=== PATIENT | female | born 1940 | race Caucasian/White ===

== ENCOUNTER 2016-07-23 14:14 | Emergency (ER) | payer MEDICARE, BC ==
[~2016-07-23] VITALS: Ht 157.5 cm; Wt 60.0 kg
[~2016-07-23 14:14] MED LIST: BISA5TAB PO; LORA10TA7 PO
[2016-07-23 14:16] VITALS: BP 125/103; PULSE 85; RESP 14; TEMP 99.2; O2SAT 99
[2016-07-24] VITALS: BP 134/85; PULSE 88; RESP 14; O2SAT 99
--- NOTE | 2016-07-24 00:55 | PD ---
HPI Chief Complaint: Cold / Flu Symptoms Time Seen by Provider: 00:23 Travel History International Travel<30 days: No Contact w/Intl Traveler<30days: No Traveled to known affect area: No History of Present Illness HPI This is a 76 year old female who presents to the emergency department reporting back pain. Pt. reports that one month ago she had a bad cold, associated with fevers, chills, body aches, and cough. She feels better but ever since then she has been having back pain. Pt. has been unable to bend over to pick anything up off of the floor, and its painful for her to lay on her right side. She is unable to sleep, which brought her into the emergency department. The patient reports the pain has moved. At first she felt it in her left upper shoulder, and now it has migrated to her right side of her neck she has some pain in her lower back and hip. PFSH Past Medical History Heart Rhythm Problems: No Cardiac Catheterization: No Cardiovascular Problems: No High Cholesterol: No Congestive Heart Failure: No Diabetes: No Diminished Hearing: No Medical other: Yes (chronic pain) Immunizations Current: Yes Menopausal: Yes Past Surgical History Appendectomy: Yes Coronary Artery Bypass Graft: No Gynecologic Surgery: Yes (OVARIAN TUMOR REMOVED-BENIGN) Hysterectomy: Yes Tonsillectomy: Yes Social History Alcohol Use: Yes (OCCASIONALLY) Tobacco Use: No Substance Use: No Allergies-Medications (Allergen,Severity, Reaction): Coded Allergies: Penicillin (Verified Allergy, Unknown, cannot remember, 01/16/16) Reported Meds & Prescriptions Reported Meds & Active Scripts Active No Active Prescriptions or Reported Medications Review of Systems Except as stated in HPI: all other systems reviewed are Neg Physical Exam Narrative GENERAL:Well appearing, no acute distress SKIN: Warm and dry. HEAD: Atraumatic. Normocephalic. EYES: Pupils equal and round. No injection or drainage. ENT: Moist mucous membranes NECK: Trachea midline. CARDIOVASCULAR: Regular rate and rhythm. No murmur appreciated. RESPIRATORY: Clear to auscultation. Breath sounds equal bilaterally. GASTROINTESTINAL: Abdomen soft, non-tender, nondistended. MUSCULOSKELETAL: No obvious deformities. NEUROLOGICAL: Awake and alert. No obvious cranial nerve deficits. Moving all extremities. PSYCHIATRIC: Appropriate mood and affect; insight and judgment normal. Data Data Last Documented VS Vital Signs Date Time Temp Pulse Resp B/P Pulse Ox O2 Delivery O2 Flow Rate FiO2 2/8/17 23:48 98 Room Air 07/23/16 14:16 99.2 85 14 125/103 Orders Complete Blood Count With Diff (07/24/16 01:09) Comprehensive Metabolic Panel (07/24/16 01:09) Creatine Kinase (Cpk) (07/24/16 01:09) ^ Insert Iv (07/24/16 01:09) Westergren Sedimentation Rate (07/24/16 01:12) Hip, Uni(Ap&Lat) W Ap Pelvis (07/24/16 ) Ct Cerv Spine W/O Contrast (07/24/16 ) Morphine Inj (Morphine Inj) (07/24/16 01:30) C-Reactive Protein (Crp) (07/24/16 02:00) Labs Laboratory Tests Test 07/24/16 02:00 White Blood Count 8.7 TH/MM3 Red Blood Count 4.12 MIL/MM3 Hemoglobin 13.6 GM/DL Hematocrit 40.0 % Mean Corpuscular Volume 97.1 FL Mean Corpuscular Hemoglobin 33.0 PG Mean Corpuscular Hemoglobin 34.0 % Concent Red Cell Distribution Width 12.6 % Platelet Count 277 TH/MM3 Mean Platelet Volume 7.7 FL Neutrophils (%) (Auto) 73.5 % Lymphocytes (%) (Auto) 15.4 % Monocytes (%) (Auto) 10.7 % Eosinophils (%) (Auto) 0.2 % Basophils (%) (Auto) 0.2 % Neutrophils # (Auto) 6.4 TH/MM3 Lymphocytes # (Auto) 1.3 TH/MM3 Monocytes # (Auto) 0.9 TH/MM3 Eosinophils # (Auto) 0.0 TH/MM3 Basophils # (Auto) 0.0 TH/MM3 CBC Comment DIFF FINAL Differential Comment Sodium Level 137 MEQ/L Potassium Level 3.8 MEQ/L Chloride Level 101 MEQ/L Carbon Dioxide Level 26.3 MEQ/L Anion Gap 10 MEQ/L Blood Urea Nitrogen 17 MG/DL Creatinine 0.43 MG/DL Estimat Glomerular Filtration 144 ML/MIN Rate Random Glucose 98 MG/DL Calcium Level 9.2 MG/DL Total Bilirubin 1.2 MG/DL Aspartate Amino Transf 21 U/L (AST/SGOT) Alanine Aminotransferase 25 U/L (ALT/SGPT) Alkaline Phosphatase 79 U/L Total Creatine Kinase 36 U/L C-Reactive Protein 11.50 MG/DL Total Protein 7.9 GM/DL Albumin 3.3 GM/DL MDM Medical Decision Making Medical Screen Exam Complete: Yes Emergency Medical Condition: Yes Interpretation(s) Temperature is 99.2 No leukocytosis CRP is 11.5 Last 24 hours Impressions Hip and Pelvis X-Ray 07/24/16 0000 Signed Impressions: Service Date/Time: July 01:30 - CONCLUSION: No acute disease. Carson Ruby MD Cervical Spine CT 07/24/16 0000 Signed Impressions: Service Date/Time: July 01:38 - CONCLUSION: Multilevel degenerative changes are seen without evidence for acute fracture. Carson Ruby MD Differential Diagnosis Arthritis, myositis, rhabdomyolysis, polymyalgia rheumatica Narrative Course This is a 76-year-old female who presents to the emergency department with pain all over her body mostly in the muscles is been present ever since she was sick with a viral syndrome. She doesn't have one joint which hurts more than the others and the pain is not limited to joints but seems more in her muscles. She was placed in a monitor and an IV was established. Labs are obtained which are unremarkable except for elevated inflammatory markers. She is normal white blood cell count. I suspect she may have polymyalgia rheumatica. I don't think this is a diagnosis we can make in the ER but I think it's reasonable to start her on a low-dose prednisone. We referred her to primary care doctor and operations manager/coordinator. Diagnosis Primary Impression: Pain Patient Instructions: General Instructions Additional Instructions: If you develop severe chest pain, shortness of breath, sweating, lightheadedness , dizziness or difficulty breathing return to the emergency department immediately. Follow-up with a primary care physician and operations manager/coordinator. Med/Other Pt SpecificInfo: Prescription(s) given Scripts Tramadol 50 Mg Tab50 Mg PO Q6H PRN (PAIN) #12 TAB Prov:Xin Davison MD 07/24/16 Prednisone 5 Mg Tab15 Mg PO DAILY 10 Days Ref 0 Prov:Xin Davison MD 07/24/16 Disposition: 01 DISCHARGE HOME Condition: Stable Xin Davison MD Jul 24, 2016 00:55
[2016-07-24] MEDS ORDERED: MORPHINE SULFATE 4 MG/ML INJ IV PUSH ONE (01:30)
--- NOTE | 2016-07-24 01:59 | RADRPT ---
EXAM DATE/TIME: 07/24/2016 01:30 [facility] COMPARISON: No previous studies available for comparison. INDICATIONS : Right hip pain for 1 week with no known injury MEDICAL HISTORY : None. SURGICAL HISTORY : None. ENCOUNTER: Initial ACUITY: 1 week PAIN SCORE: 6/10 LOCATION: Right entire hip FINDINGS: Examination of the right hip was performed with AP Pelvis. The primary and secondary trabecular yvonne emmett of the femoral neck is intact. The hip joint is of normal width without significant sclerosis or bony hypertrophy. The acetabulum is grossly intact. CONCLUSION: No acute disease. Carson Ruby MD on July 24, 2016 at 1:57 Board Certified Radiologist. This report was verified electronically.
--- NOTE | 2016-07-24 02:02 | RADRPT ---
EXAM DATE/TIME: 07/24/2016 01:38 [facility] COMPARISON: No previous studies available for comparison. INDICATIONS : Right sided neck pain. RADIATION DOSE: 21.92 CTDIvol (mGy) MEDICAL HISTORY : None SURGICAL HISTORY : Appendectomy. Hysterectomy.Tonsillectomy. ENCOUNTER: Initial ACUITY: 1 day PAIN SCALE: 7/10 LOCATION: neck TECHNIQUE: Volumetric scanning of the cervical spine was performed. Multiplanar reconstructions in the sagittal, coronal and oblique axial planes were performed. Using automated exposure control and adjustment o f the mA and/or kV according to patient size, radiation dose was kept as low as reasonably achievable to obtain optimal diagnostic quality images. FINDINGS: No prevertebral soft tissue swelling or compression deformity. Multilevel facet hypertrophic changes are seen greatest at C4-5 on the right. There is severe disc space narrowing at C3-4, C5-6 and C6-7 w ith anterior osteophytosis. Grade 1 retrolisthesis of C3 on C4 and C5 on C6 with grade 1 anterolisthe sis of C4 on C5 and C7 on T1. Multilevel uncovertebral hypertrophy. There is mild to moderate right f oraminal narrowing at C3-4. Moderate left foraminal narrowing at C5-6. Mild canal narrowing at C5-6 s econdary to a diffuse disc osteophyte complex. Mild canal narrowing at C3-4 secondary to a diffuse di sc osteophyte complex. CONCLUSION: Multilevel degenerative changes are seen without evidence for acute fracture. Crason Ruby MD on July 24, 2016 at 1:58 Board Certified Radiologist. This report was verified electronically.
[2016-07-24 02:46] LABS: AUTOMATED NEUTROPHIL # 6.4 TH/MM3 (1.8-7.7); BASOPHIL % 0.2 % (0.0-2.0); EOSINOPHIL % 0.2 % (0.0-4.0); HEMO FLAGS DIFF FINAL; LYMPH % 15.4 % (9.0-44.0); LYMPHOCYTE # 1.3 TH/MM3 (1.0-4.8); MEAN CELL VOLUME 97.1 FL (80.0-100.0); MONO % 10.7 % (0.0-8.0); NEUT % 73.5 % (16.0-70.0); PLATELET COUNT 277 TH/MM3 (150-450); RED BLOOD COUNT 4.12 MIL/MM3 (4.00-5.30); RED CELL DISTRIBUTION WIDTH 12.6 % (11.6-17.2); WHITE BLOOD COUNT 8.7 TH/MM3 (4.0-11.0)
[2016-07-24 02:54] LABS: ALT (GPT) 25 U/L (10-53); ANION GAP 10 MEQ/L (5-15); AST (GOT) 21 U/L (15-37); BICARBONATE 26.3 MEQ/L (21.0-32.0); BLOOD UREA NITROGEN 17 MG/DL (7-18); CHLORIDE 101 MEQ/L (98-107); GLOMERULAR FILTRATION RATE 144 ML/MIN (>89); POTASSIUM 3.8 MEQ/L (3.5-5.1); SODIUM (NA) 137 MEQ/L (136-145)
[2016-07-24 02:56] LABS: ALKALINE PHOSPHATASE 79 U/L (45-117); TOTAL BILIRUBIN ADULT 1.2 MG/DL (0.2-1.0)
[2016-07-24 03:00] LABS: CREATINE KINASE 36 U/L (26-192)
[2016-07-24] MEDS ORDERED: TRAM50TA PO (03:25)
[2016-07-24] MEDS ORDERED: PRED5TAB PO (03:25)
[2016-07-24 03:56] VITALS: BP 129/60; PULSE 100; RESP 18; O2SAT 99
[2016-10-07] MEDS ORDERED: DIPH1TAB36 PO (11:05)
[2016-10-07] MEDS ORDERED: LORA10TA PO (11:05)
[2016-10-07] MEDS ORDERED: [UNRECOGNIZED DRUG - OTHER] (11:05)
[2016-10-07] MEDS ORDERED: MISC1CAP4 PO (11:05)
[2016-10-22] MEDS ORDERED: COLOCAP (08:54)
[2016-10-22] MEDS ORDERED: PNEU13P IM (09:09)
== END 2016-07-24 04:02 | disposition home or self-care (01) ==
LOC: NEPC 14:14
DX: R52 Pain, unspecified (principal); M54.2 Cervicalgia; M54.5 Low back pain; M25.559 Pain in unspecified hip
CPT/HCPCS: 72125; 73502; 80053; 82550; 85025; 85652; 86140; 96374; 99284; J2270

== ENCOUNTER 2017-06-16 16:25 | Observation (INO) | payer MEDICARE, BC ==
[~2017-06-16] VITALS: Ht 157.5 cm; Wt 62.3 kg
[~2017-06-16 16:25] MED LIST changes: -BISA5TAB PO; +COLOCAP; +DIPH1TAB36 PO; +LORA10TA PO; -LORA10TA7 PO; +[UNRECOGNIZED DRUG - OTHER]
[2017-06-16 16:28] VITALS: BP 137/87; PULSE 76; RESP 14; TEMP 97.8; O2SAT 96
[2017-06-16] MEDS ORDERED: SODIUM CHLORIDE 0.9% FLUSH 10 ML FLUSH IVF PRN (17:15)
[2017-06-16 17:26] VITALS: O2SAT 99
[2017-06-16 17:54] LABS: AUTOMATED NEUTROPHIL # 3.7 TH/MM3 (1.8-7.7); BASOPHIL % 0.3 % (0.0-2.0); EOSINOPHIL # 0.1 TH/MM3 (0-0.4); EOSINOPHIL % 1.2 % (0.0-4.0); HEMATOCRIT 41.1 % (35.0-46.0); HEMOGLOBIN 14.4 GM/DL (11.6-15.3); LYMPH % 30.1 % (9.0-44.0); LYMPHOCYTE # 1.8 TH/MM3 (1.0-4.8); MEAN CELL VOLUME 100.6 FL (80.0-100.0); MEAN CORPUSCULAR HEMOGLOBIN 35.1 PG (27.0-34.0); MEAN CORPUSCULAR HGB CONC 34.9 % (32.0-36.0); MEAN PLATELET VOLUME 7.9 FL (7.0-11.0); MONO % 6.3 % (0.0-8.0); MONOCYTE # 0.4 TH/MM3 (0-0.9); NEUT % 62.1 % (16.0-70.0); PLATELET COUNT 271 TH/MM3 (150-450); RED BLOOD COUNT 4.09 MIL/MM3 (4.00-5.30); RED CELL DISTRIBUTION WIDTH 13.9 % (11.6-17.2)
--- NOTE | 2017-06-16 17:55 | RADRPT ---
EXAM DATE/TIME: 06/16/2017 17:33 [facility] COMPARISON: No previous studies available for comparison. INDICATIONS : Chest pain. MEDICAL HISTORY : None. SURGICAL HISTORY : None. ENCOUNTER: Initial ACUITY: 1 day PAIN SCORE: 7/10 LOCATION: Bilateral chest FINDINGS: The lungs are clear without infiltrate, nodule, or mass. There is no appreciable pleural effusion fo r technique. Heart and mediastinum are unremarkable. CONCLUSION: No acute cardiopulmonary disease. Bola Brandon MD on June 16, 2017 at 17:53 Board Certified Radiologist. This report was verified electronically.
[2017-06-16 18:26] LABS: ALBUMIN 4.1 GM/DL (3.4-5.0); ALT (GPT) 40 U/L (10-53); AST (GOT) 28 U/L (15-37); BICARBONATE 32.2 MEQ/L (21.0-32.0); BLOOD UREA NITROGEN 20 MG/DL (7-18); CALCIUM 8.6 MG/DL (8.5-10.1); CHLORIDE 106 MEQ/L (98-107); CREATININE 0.48 MG/DL (0.50-1.00); GLOMERULAR FILTRATION RATE 126 ML/MIN (>89); GLUCOSE,RANDOM 57 MG/DL (74-106); MAGNESIUM 2.6 MG/DL (1.5-2.5); SODIUM (NA) 142 MEQ/L (136-145)
[2017-06-16 18:32] LABS: ALKALINE PHOSPHATASE 54 U/L (45-117); TOTAL BILIRUBIN ADULT 0.8 MG/DL (0.2-1.0); TOTAL PROTEIN 7.9 GM/DL (6.4-8.2); TROPONIN I LESS THAN 0.02 NG/ML (0.02-0.05)
--- NOTE | 2017-06-16 19:13 | PD ---
HPI Chief Complaint: Chest Pain Time Seen by Provider: 17:12 Travel History International Travel<30 days: No Contact w/Intl Traveler<30days: No Traveled to known affect area: No History of Present Illness HPI 77 year old female presents to the emergency department for evaluation substernal chest pressure x 4 days. The pain does not radiate anywhere and is constant in nature. The pain is mild in nature. It is concerning her because she does not have any major medical history. Patient states today when she was at the bank she feel like she was going to pass out. She did not pass out and the feel was transient. The patient denies any shortness of breath or diaphoresis during this event. Patient states she has felt nauseous today, but has not vomited, experienced abdominal pain or diarrhea. Patient denies any recent fevers, chills, malaise. PFSH Past Medical History Heart Rhythm Problems: No Cardiac Catheterization: No Cardiovascular Problems: No High Cholesterol: No Congestive Heart Failure: No Diabetes: No Diminished Hearing: No Immunizations Current: Yes ?: Not Menopausal: Yes Past Surgical History Appendectomy: Yes Coronary Artery Bypass Graft: No Gynecologic Surgery: Yes (OVARIAN TUMOR REMOVED-BENIGN) Hysterectomy: Yes Tonsillectomy: Yes Social History Alcohol Use: Yes (OCCASIONALLY) Tobacco Use: No Substance Use: No Allergies-Medications (Allergen,Severity, Reaction): Coded Allergies: penicillin G (Unverified Allergy, Unknown, cannot remember, 06/16/17) Reported Meds & Prescriptions Reported Meds & Active Scripts Active No Active Prescriptions or Reported Medications Review of Systems Except as stated in HPI: all other systems reviewed are Neg Physical Exam Narrative GENERAL: Well-nourished, well-developed 77-year-old female in no acute distress. Nontoxic appearing. SKIN: Focused skin assessment warm/dry. HEAD: Atraumatic. Normocephalic. EYES: Pupils equal and round. No scleral icterus. No injection or drainage. ENT: No nasal bleeding or discharge. Mucous membranes pink and moist. NECK: Trachea midline. No JVD. CARDIOVASCULAR: Regular rate and rhythm. No murmur appreciated. RESPIRATORY: No accessory muscle use. Clear to auscultation. Breath sounds equal bilaterally. GASTROINTESTINAL: Abdomen soft, non-tender, nondistended. Negative Greer's sign. Hepatic and splenic margins not palpable. MUSCULOSKELETAL: No obvious deformities. No clubbing. No cyanosis. No edema. NEUROLOGICAL: Awake and alert. No obvious cranial nerve deficits. Motor grossly within normal limits. Normal speech. PSYCHIATRIC: Appropriate mood and affect; insight and judgment normal. Data Data Last Documented VS Vital Signs Date Time Temp Pulse Resp B/P (MAP) Pulse Ox O2 Delivery O2 Flow Rate FiO2 06/16/17 17:26 99 Room Air 06/16/17 17:26 06/16/17 16:28 97.8 76 14 Orders Orders Electrocardiogram (06/16/17 ) Ckmb (Isoenzyme) Profile (06/16/17 17:13) Complete Blood Count With Diff (06/16/17 17:13) Comprehensive Metabolic Panel (06/16/17 17:13) Magnesium (Mg) (06/16/17 17:13) Prothrombin Time / Inr (Pt) (06/16/17 17:13) Act Partial Throm Time (Ptt) (06/16/17 17:13) Troponin I (06/16/17 17:13) Chest, Single Ap (06/16/17 17:13) Ecg Monitoring (06/16/17 17:13) Bilateral Bp Monitoring (06/16/17 17:13) Iv Access Insert/Monitor (06/16/17 17:13) Oximetry (06/16/17 17:13) Oxygen Administration (06/16/17 17:13) Sodium Chloride 0.9% Flush (Ns Flush) (06/16/17 17:15) Ct Brain W/O Iv Contrast(Rout) (06/16/17 18:51) Admit Order (Ed Use Only) (06/16/17 19:51) Labs Laboratory Tests Test 06/16/17 17:25 White Blood Count 6.0 TH/MM3 Red Blood Count 4.09 MIL/MM3 Hemoglobin 14.4 GM/DL Hematocrit 41.1 % Mean Corpuscular Volume 100.6 FL Mean Corpuscular Hemoglobin 35.1 PG Mean Corpuscular Hemoglobin Concent 34.9 % Red Cell Distribution Width 13.9 % Platelet Count 271 TH/MM3 Mean Platelet Volume 7.9 FL Neutrophils (%) (Auto) 62.1 % Lymphocytes (%) (Auto) 30.1 % Monocytes (%) (Auto) 6.3 % Eosinophils (%) (Auto) 1.2 % Basophils (%) (Auto) 0.3 % Neutrophils # (Auto) 3.7 TH/MM3 Lymphocytes # (Auto) 1.8 TH/MM3 Monocytes # (Auto) 0.4 TH/MM3 Eosinophils # (Auto) 0.1 TH/MM3 Basophils # (Auto) 0.0 TH/MM3 CBC Comment DIFF FINAL Differential Comment Prothrombin Time 10.0 SEC Prothromb Time International Ratio 1.0 RATIO Activated Partial Thromboplast Time 23.9 SEC Blood Urea Nitrogen 20 MG/DL Creatinine 0.48 MG/DL Random Glucose 57 MG/DL Total Protein 7.9 GM/DL Albumin 4.1 GM/DL Calcium Level 8.6 MG/DL Magnesium Level 2.6 MG/DL Alkaline Phosphatase 54 U/L Aspartate Amino Transf (AST/SGOT) 28 U/L Alanine Aminotransferase (ALT/SGPT) 40 U/L Total Bilirubin 0.8 MG/DL Sodium Level 142 MEQ/L Potassium Level 3.5 MEQ/L Chloride Level 106 MEQ/L Carbon Dioxide Level 32.2 MEQ/L Anion Gap 4 MEQ/L Estimat Glomerular Filtration Rate 126 ML/MIN Total Creatine Kinase 70 U/L Troponin I LESS THAN 0.02 NG/ML [facility] Medical Decision Making Medical Screen Exam Complete: Yes Emergency Medical Condition: Yes Differential Diagnosis Differential diagnoses include but not limited to electrolyte abnormality, coronary event, pneumonia, CA Narrative Course Patient was on monitor, IV obtained, blood work sent to lab. CBC, CMP, magnesium, PT/INR, troponin, CK-MB ordered and pending. Chest x-ray ordered and pending. EKG ordered and interpreted. CT of the brain ordered to evaluate symptoms of near syncope. Chest x-ray shows no acute cardiopulmonary disease CT of the brain shows no acute intracranial disease EKG shows sinus rhythm with heart rate 70 CBC shows no acute abnormality CMP shows milk hypoglycemia at 57. [place] juice given. Trop is less than 0.02 Mag is 2.6 PT/INR shows APTT 23.9, otherwise no acute abnormality. Based on patient's symptoms, clinical presentation, lab results, radiological results, vital sign review and physical exam it is prudent to keep the patient in the chest pain for further evaluation. Patient will be admitted for obs, serial EKG and cardiac enzymes and a stress test in the morning now. Diagnosis Primary Impression: Chest pain Qualified Codes: R07.9 - Chest pain, unspecified Admitting Information Admitting Physician Requests: Observation Scripts No Active Prescriptions or Reported Meds eMlinda Henley Jun 16, 2017 19:13
--- NOTE | 2017-06-16 19:32 | RADRPT ---
EXAM DATE/TIME: 06/16/2017 19:11 [facility] COMPARISON: CT BRAIN W/O CONTRAST, June 28, 2014, 6:39. INDICATIONS : Dizziness. RADIATION DOSE: 56.35 CTDIvol (mGy) MEDICAL HISTORY : None SURGICAL HISTORY : None. ENCOUNTER: Initial ACUITY: 1 day PAIN SCALE: 0/10 LOCATION: cranial TECHNIQUE: Multiple contiguous axial images were obtained of the head. Using automated exposure control and adj ustment of the mA and/or kV according to patient size, radiation dose was kept as low as reasonably a chievable to obtain optimal diagnostic quality images. DICOM format image data is available electro nically for review and comparison. FINDINGS: CEREBRUM: The ventricles are normal for age. No evidence of midline shift, mass lesion, hemorrhage or acute in farction. No extra-axial fluid collections are seen. POSTERIOR FOSSA: The cerebellum and brainstem are intact. The 4th ventricle is midline. The cerebellopontine angle i s unremarkable. EXTRACRANIAL: The visualized portion of the orbits is intact. SKULL: The calvaria is intact. No evidence of skull fracture. CONCLUSION: No acute intracranial disease. Rusty Luong MD on June 16, 2017 at 19:29 Board Certified Radiologist. This report was verified electronically.
[2017-06-16] MEDS ORDERED: SODIUM CHLORIDE 0.9% FLUSH 10 ML FLUSH IV FLUSH PRN (20:45)
[2017-06-16 21:14] VITALS: BP 136/60; PULSE 96; RESP 18; TEMP 98.3; O2SAT 99
[2017-06-16 21:54] VITALS: PULSE 93
[2017-06-16 21:59] LABS: TROPONIN I LESS THAN 0.02 NG/ML (0.02-0.05)
[2017-06-16 22:00] VITALS: O2SAT 98
[2017-06-16 23:16] VITALS: BP 129/61; PULSE 77; RESP 18; O2SAT 98
[2017-06-17 00:28] VITALS: PULSE 77
[2017-06-17] MEDS: SODIUM CHLORIDE 0.9% FLUSH 10 ML FLUSH IV FLUSH SCH ×2 (00:49→09:03)
[2017-06-17 01:01] LABS: TROPONIN I LESS THAN 0.02 NG/ML (0.02-0.05)
[2017-06-17 03:21] VITALS: BP 111/61; PULSE 71; RESP 18; TEMP 98.2; O2SAT 96
[2017-06-17 04:05] VITALS: PULSE 63
--- NOTE | 2017-06-17 08:36 | HHI.HP ---
[facility] Primary Care Physician Esther Mancilla MD Chief Complaint Chest pain History of Present Illness This is a 77-year-old female that presents to ED via private vehicle with complaint of intermittent chest discomforts for the past 2-1/2 weeks. States it began before [place]. She states "I just wanted to make it through [place]." States it occurs almost every night. When asked how long it last patient states "I don't know." Cannot recall anything that brings on the discomfort. Points to the substernal region to indicate where the discomfort is located. No shortness breath or diaphoresis. Had no prior nausea however she states that she was going to [place] that she had an episode of nonbloody nonbilious emesis. States that she was feeling dizzy while driving yesterday afternoon and that prompted her to come to the ED. Denies headache. Denies numbness tingling or weakness in extremities. States she's had a stress test in the past and upon reviewing records she had a nonischemic Jerod protocol ETT in 2013. Denies hypertension, hyperlipidemia, diabetes, CAD. Denies family history of CAD. Lifetime nonsmoker. Review of Systems General: Patient denies fevers, chills recent, and recent travel HEENT: Patient denies headache, sore throat, difficulty swallowing. Cardiovascular: Has the chest discomfort as mentioned above. Denies sensation of heart beating rapidly or irregularly. No syncope. Denies diaphoresis. Respiratory: Denies shortness of breath or inspirational chest discomfort. Denies coughing wheezing or hemoptysis. GI: One episode of emesis while in [place]. Patient denies diarrhea, abdominal pain , bloody stools. Musculoskeletal: Patient denies joint pain or edema. Denies calf pain or edema. Neurovascular: Patient denies numbness, tingling, weakness in extremities. Denies headache. Endocrine: Denies polyuria and polydipsia. Hematologic: Denies easy bruising. Skin: Denies rash or itching. Past Family Social History Allergies: Coded Allergies: penicillin G (Unverified Allergy, Unknown, cannot remember, 06/16/17) Past Medical History She's had a few episodes of vertigo. Seasonal allergies. Denies hypertension, hyperlipidemia, diabetes, and CAD. Lifetime nonsmoker. Past Surgical History Benign ovarian tumor removed. Hysterectomy appendectomy, and tonsillectomy. Reported Medications Reported Meds & Active Scripts Active No Active Prescriptions or Reported Medications Active Ordered Medications Current Medications Medications (Trade) Dose Ordered Sig/Chris Route Start Time Stop Time Status Last Admin (NS Flush) 2 ml UNSCH PRN IVF 06/16/17 17:15 (NS Flush) 2 ml UNSCH PRN IV FLUSH 06/16/17 20:45 (NS Flush) 2 ml BID IV FLUSH 06/16/17 21:00 06/17/17 00:49 Family History Denies family history of CAD. Social History Lifetime nonsmoker. Denies illicit drugs. Has occasional alcohol. Physical Exam Vital Signs Vital Signs Date Time Temp Pulse Resp B/P (MAP) Pulse Ox O2 Delivery O2 Flow Rate FiO2 06/17/17 07:42 21 06/17/17 04:05 63 06/17/17 03:21 98.2 71 18 111/61 (78) 96 06/17/17 00:28 77 06/16/17 23:16 77 18 129/61 (83) 98 06/16/17 22:00 98 06/16/17 21:54 93 06/16/17 21:14 98.3 96 18 136/60 (85) 99 06/16/17 20:58 06/16/17 17:26 99 Room Air 06/16/17 17:26 99 Room Air 06/16/17 16:28 97.8 76 14 137/87 (104) 96 Physical Exam GENERAL: This is a well-nourished, well-developed patient, in no apparent distress. Patient speaks in clear complete sentences. Patient is pleasant. HEENT: Head is atraumatic and normocephalic. Neck is supple without lymphadenopathy and trachea is midline. No JVD or carotid bruits. CARDIOVASCULAR: Regular rate and rhythm without murmurs, gallops, or rubs. RESPIRATORY: Clear to auscultation. Breath sounds equal bilaterally. No wheezes , rales, or rhonchi. Chest wall is nontender. No use of accessory muscles. GASTROINTESTINAL: Abdomen is nontender, nondistended. Abdomen soft. No obvious pulsatile mass or bruit. No CVA tenderness. Strong femoral pulses bilaterally. Normal bowel sounds in all quadrants. MUSCULOSKELETAL: Patient is moving upper and lower extremities freely. No calf tenderness or edema, no Homans sign. Strong pulses in upper and lower extremities. NEUROLOGICAL: Patient is alert and oriented. Cranial nerves 2-12 are grossly intact. No focal deficits and speech is clear. SKIN: No rash and turgor is normal. Laboratory Laboratory Tests Test 06/16/17 17:25 06/16/17 21:24 06/16/17 23:50 White Blood Count 6.0 Red Blood Count 4.09 Hemoglobin 14.4 Hematocrit 41.1 Mean Corpuscular Volume 100.6 Mean Corpuscular Hemoglobin 35.1 Mean Corpuscular Hemoglobin Concent 34.9 Red Cell Distribution Width 13.9 Platelet Count 271 Mean Platelet Volume 7.9 Neutrophils (%) (Auto) 62.1 Lymphocytes (%) (Auto) 30.1 Monocytes (%) (Auto) 6.3 Eosinophils (%) (Auto) 1.2 Basophils (%) (Auto) 0.3 Neutrophils # (Auto) 3.7 Lymphocytes # (Auto) 1.8 Monocytes # (Auto) 0.4 Eosinophils # (Auto) 0.1 Basophils # (Auto) 0.0 CBC Comment DIFF FINAL Differential Comment Prothrombin Time 10.0 Prothromb Time International Ratio 1.0 Activated Partial Thromboplast Time 23.9 Blood Urea Nitrogen 20 Creatinine 0.48 Random Glucose 57 Total Protein 7.9 Albumin 4.1 Calcium Level 8.6 Magnesium Level 2.6 Alkaline Phosphatase 54 Aspartate Amino Transf (AST/SGOT) 28 Alanine Aminotransferase (ALT/SGPT) 40 Total Bilirubin 0.8 Sodium Level 142 Potassium Level 3.5 Chloride Level 106 Carbon Dioxide Level 32.2 Anion Gap 4 Estimat Glomerular Filtration Rate 126 Total Creatine Kinase 70 58 66 Troponin I LESS THAN 0.02 LESS THAN 0.02 LESS THAN 0.02 Result Diagram: 06/16/17 1725 06/16/17 1725 Imaging Last [address] 06/16/17 1851 Signed Impressions: Service Date/Time: Friday, June 16, 2017 19:11 - CONCLUSION: No acute intracranial disease. Rusty Luong MD Chest X-Ray 06/16/17 1713 Signed Impressions: Service Date/Time: Friday, June 16, 2017 17:33 - CONCLUSION: No acute cardiopulmonary disease. Bola Brandon MD Course EKGs are sinus rhythm with occasional PVCs. No significant ST segment depressions or elevations. Caprini VTE Risk Assessment Caprini VTE Risk Assessment: Mod/High Risk (score >= 2) Caprini Risk Assessment Model Point Value = 1 Point Value = 2 Point Value = 3 Point Value = 5 Age 41-60 Minor surgery BMI > 25 kg/m2 Swollen legs Varicose veins or History of unexplained or recurrent spontaneous Oral contraceptives or hormone replacement Sepsis (< 1 month) Serious lung disease, including pneumonia (< 1 month) Abnormal pulmonary function Acute myocardial infarction Congestive heart failure (< 1 month) History of inflammatory bowel disease Medical patient at bed rest Age 61-74 Arthroscopic surgery Major open surgery (> 45 min) Laparoscopic surgery (> 45 min) Malignancy Confined to bed (> 72 hours) Immobilizing plaster cast Central venous access Age >= 75 History of VTE Family history of VTE Factor V Leiden Prothrombin [id number] Lupus anticoagulant Anticardiolipin antibodies Elevated serum homocysteine Heparin-induced thrombocytopenia Other congenital or acquired thrombophilia Stroke (< 1 month) Elective arthroplasty Hip, pelvis, or leg fracture Acute spinal cord injury (< 1 month) Prophylaxis Regimen Total Risk Factor Score Risk Level Prophylaxis Regimen 0-1 Low Early ambulation 2 Moderate Order ONE of the following: *Sequential Compression Device (SCD) *Heparin 5000 units SQ BID 3-4 Higher Order ONE of the following medications: *Heparin 5000 units SQ TID *Enoxaparin/Lovenox 40 mg SQ daily (WT < 150 kg, CrCl > 30 mL/min) *Enoxaparin/Lovenox 30 mg SQ daily (WT < 150 kg, CrCl > 10-29 mL/min) *Enoxaparin/Lovenox 30 mg SQ BID (WT < 150 kg, CrCl > 30 mL/min) AND/OR *Sequential Compression Device (SCD) 5 or more Highest Order ONE of the following medications: *Heparin 5000 units SQ TID (Preferred with Epidurals) *Enoxaparin/Lovenox 40 mg SQ daily (WT < 150 kg, CrCl > 30 mL/min) *Enoxaparin/Lovenox 30 mg SQ daily (WT < 150 kg, CrCl > 10-29 mL/min) *Enoxaparin/Lovenox 30 mg SQ BID (WT < 150 kg, CrCl > 30 mL/min) AND *Sequential Compression Device (SCD) Assessment and Plan Assessment and Plan * Chest pain: Patient has had serial cardiac enzymes and EKGs for ruling out purposes. She has been seen by Dr. Adam Denny of cardiology in the chest pain center and will undergo a Jerod protocol ETT. She'll be discharged home if her stress test is nonischemic with instructions to follow-up with PCP. Return to ED for interval issues. * Hypoglycemia: Patient's glucose was 57 upon arrival in the ED. Rechecked several hours later and was 102. Patient to discuss with PCP. Patient is stable at this time. She is agreeable to this plan. Tanmay Lynn Jun 17, 2017 08:36
[2017-06-17 08:48] VITALS: BP 120/64; PULSE 72; RESP 18; TEMP 98.2; O2SAT 96
--- NOTE | 2017-06-17 09:43 | HHI.DCPOC ---
Discharge Care Plan Diagnosis: (1) Hypoglycemia (2) Chest pain Goals to Promote Your Health * To prevent worsening of your condition and complications * To maintain your health at the optimal level Directions to Meet Your Goals Take your medications as prescribed Follow your dietary instruction Follow activity as directed Keep your appointments as scheduled Take your immunizations and boosters as scheduled If your symptoms worsen call your PCP, if no PCP go to Urgent Care Center or Emergency Room Smoking is Dangerous to Your Health. Avoid second hand smoke Call the 24-hour hour crisis hotline for domestic abuse at Tanmay Lynn Jun 17, 2017 09:43
--- NOTE | 2017-06-17 09:49 | EKG ---
Date Performed: 06/16/2017 Time Performed: 21:30:31 PTAGE: 77 years EKG: Sinus rhythm WITH FREQUENT VENTRICULAR PREMATURE COMPLEXES POSSIBLE LEFT ATRIAL ENLARGEMENT INCOMPLETE RIGHT BUND LE BRANCH BLOCK ABNORMAL RHYTHM ECG PREVIOUS TRACING : 06/16/2017 16.48 Since previous tracing, no significant change noted DOCTOR: Adam Denny Interpretating Date/Time 06/17/2017 09:49:45
--- NOTE | 2017-06-17 09:49 | EKG ---
Date Performed: 06/16/2017 Time Performed: 23:21:18 PTAGE: 77 years EKG: Sinus rhythm WITH OCCASIONAL VENTRICULAR PREMATURE COMPLEXES POSSIBLE LEFT ATRIAL ENLARGEMENT INCOMPLETE RIGHT BU NDLE BRANCH BLOCK BORDERLINE ECG PREVIOUS TRACING : 06/16/2017 21.30 Since previous tracing, no significant change noted DOCTOR: Adam Denny Interpretating Date/Time 06/17/2017 09:49:14
--- NOTE | 2017-06-17 09:53 | EKG ---
Date Performed: 06/16/2017 Time Performed: 16:48:32 PTAGE: 77 years EKG: Sinus rhythm POSSIBLE LEFT ATRIAL ENLARGEMENT INCOMPLETE RIGHT BUNDLE BRANCH BLOCK BORDERLINE ECG PREVIOUS TRACING : 06/28/2014 06.15 Since previous tracing, no significant change noted DOCTOR: Adam Denny Interpretating Date/Time 06/17/2017 09:52:23
--- NOTE | 2017-06-17 10:00 | TR ---
Date Performed: 06/17/2017 Time Performed: 09:18:14 DOCTOR: Adam Denny DRUG LIST: CLINICAL HISTORY: CHEST PAIN REASON FOR TEST: REASON FOR ENDING: OBSERVATION: CONCLUSION: ANGELIKA PROTOCOL ETT. NO CP OR SOB. TEST STOPPED AFTER EXCEEDING GOAL HR SECONDARY TO LEG FATIGUE. OCCASIONAL PACS.Maximum ME=379 % Max HR Achieved=94.0% Maximum JL=982/70 Total Exercise Time=7:02 COMMENTS: Patient exercised using the Angelika protocol. No electrocardiographic changes were seen to suggest ischemia. Hemodynamic response to exercise was normal. No significant arrhythmia was prese nt.
== END 2017-06-17 11:37 | disposition home or self-care (01) ==
LOC: NEPE 16:25 → NEDA 19:53 → NEPFCDU 20:51
PROVIDERS: ADMIT Internal Medicine Interventional Cardiology; ATTEND Internal Medicine Interventional Cardiology
DX: E16.2 Hypoglycemia, unspecified (principal); R07.89 Other chest pain; R11.0 Nausea
CPT/HCPCS: 70450; 71045; 80053; 82550; 82948; 83735; 84484; 85025; 85610; 85730; 93005; 93017; 99285; G0378